=== PATIENT | male | born 1945 | race Caucasian/White ===

== ENCOUNTER 2025-01-20 15:30 | Inpatient (IN) ==
--- NOTE | 2025-01-20 15:50 | XRay Report ---
XR chest 1V portable CLINICAL HISTORY: Chest pain, nonspecific COMPARISON STUDY: None FINDINGS: Heart size and pulmonary vasculature are normal. There is a small area of patchy opacity at the right mid lung laterally. No other consolidation or pleural effusion. No pneumothorax. IMPRESSION: Early pneumonia on the right. Follow-up to resolution recommended to rule out underlying pulmonary nodule. ACT 112: Positive. There are findings on this exam that require communication between the performing entity and the patient following Patient Test Result Information Act ([place] Act 112) guidelines. Electronically signed by: Cedrick Vail M.D. 01/20/2025 3:49 PM
[2025-01-20 15:55] LABS: Hematocrit (blood only) 40.2 % (42.0-52.0); Hemoglobin 14.4 g/dl (14.0-18.0); Immature Granulocytes # (auto) 0.13 K/uL (0.01-0.20); Immature Granulocytes % (auto) 1.0 %; Mean Corpuscular Hemoglobin 29.9 pg (25.0-34.0); Mean Corpuscular Volume 83.4 fL (80.0-100.0); Platelet Count 361 K/uL (130-400); RDW Standard Deviation 35.8 fL (36.4-46.3); Red Blood Count 4.82 M/uL (4.70-6.10); White Blood Count 12.42 K/ul (4.8-10.8)
--- NOTE | 2025-01-20 15:55 | Electrocardiogram Report ---
Test Reason : Blood Pressure : */* mmHG Vent. Rate : 75 BPM Atrial Rate : 75 BPM P-R Int : 178 ms QRS Dur : 90 ms QT Int : 430 ms P-R-T Axes : 56 61 55 degrees QTcB Int : 480 ms Normal sinus rhythm Nonspecific ST abnormality Prolonged QT Abnormal ECG No previous ECGs available Confirmed by West Nesbitt ([id number]) on 01/20/2025 3:55:04 PM Referred By: Confirmed By: West Nesbitt
[2025-01-20 16:13] LABS: Alanine Aminotransferase 25.0 U/L (7-52); Albumin Globulin Ratio 1.1 (0.9-2); Alkaline Phosphatase 127.0 U/L (34-104); Anion Gap 13.0 (3-11); Bilirubin,Total 0.6 mg/dl (0.2-1.0); Blood Urea Nitrogen 36.0 mg/dl (6-23); Calcium 9.6 mg/dl (8.6-10.3); Carbon Dioxide 26.0 mmol/L (21-32); Chloride 100.0 mmol/L (98-107); Creatinine Clr Calc Pharmacy 41.0 ml/min; Globulin 3.6 gm/dl (2.5-4.0); Glucose 114.0 mg/dl (70-99(Fasting)); Potassium 3.4 mmol/L (3.5-5.1); Sodium 139.0 mmol/L (136-145); Total Protein 7.4 gm/dl (6.0-8.3)
[2025-01-20 16:28] LABS: INR 1.0 (0.9-1.1); Partial Thromboplastin Time 26 Seconds (21-31); Prothrombin Time 10.9 Seconds (9.0-12.0)
[2025-01-20 16:43] LABS: Influenza A virus by PCR Negative (Neg); Influenza B virus by PCR Negative (Neg); SARS CoV2 RNA(COVID-19) Ceph NEGATIVE (Negative)
[2025-01-20] MEDS: OPTIRAY 320 125ml IV ONE (16:47)
--- NOTE | 2025-01-20 18:04 | CT Scan Report ---
EXAMINATION: Chest CT with CLINICAL HISTORY: Elevated troponin, PE versus pneumonia PRIORS: None TECHNIQUE: Contiguous axial images were obtained through the chest with the use of intravenous contrast. Sagittal and coronal reformations are supplied. FINDINGS: Pulmonary arteries are well opacified. No central or peripheral pulmonary embolism is identified. In lung windows, pulmonary emphysema noted. Heterogeneous spiculated opacity present in the right upper lung, at the level of the fissure, image 64, series 3 and similar appearance in the left lung lingular segment medially and both lung bases. Small right pleural effusion is present. No pericardial effusion. Small nonpathologically enlarged mediastinal lymph nodes are noted. Trachea and mainstem bronchi are patent. Heart size within normal limits. Moderate atherosclerotic disease of the aorta noted. Limited visualization of the upper abdomen is unremarkable. In bone windows, degenerative change of the spine, allowing for protocol technique. IMPRESSION: 1. CT features favoring multifocal bilateral pneumonia. After medical treatment, follow-up chest CT is suggested in 6 to 8 weeksto ensure resolution as underlying malignancy cannot be excluded. 2. No pulmonary embolism. ACT 112: Positive. There are findings on this examination that require communication between the performing entity and the patient following Patient Test Result Information Act ([place] ACT 112) guidelines. Electronically signed by Corry Murguia 01-20-2025 6:04 PM
[2025-01-20] MEDS: cefTRIAXone SODIUM 2,000 MG/50 ML BAG IV STA (18:13)
--- NOTE | 2025-01-20 18:25 | Emergency Department Note ---
Impression & Plan Acute hypoxic respiratory failure, Community acquired pneumonia ED Provider Note NAME: BONNIE ECHEVARRIA Jr AGE: 79 SEX: M : 1945 ARRIVES VIA: Ambulance INFORMANT: Patient, ED PROVIDER(S): Nuha Taylor MD CHIEF COMPLAINT: Cough, congestion HPI: This is a 79-year-old male present for cough and congestion. Patient notes that he began feeling ill about 8 days ago. He then felt somewhat better and then got worse again. He reports shortness of breath, difficulty walking due to dyspnea. He reports cough. Reports yellow phlegm. No fevers at home. No nausea vomiting or diarrhea. No chest pain or pleurisy or leg swelling with this. No back pain. ROS: See above HPI for pertinent positives & negatives. A total of 10 systems reviewed and were otherwise negative. PAST MEDICAL HISTORY: See Below PAST SURGICAL HISTORY: See Below FAMILY HISTORY: See Below SOCIAL HISTORY: See Below HOME MEDICATIONS: See Below ALLERGIES: See Below VITALS: See Below PHYSICAL EXAMINATION: General: resting comfortably in no acute distress Head: Normocephalic and atraumatic Eyes: Normal inspection, extraocular muscles intact Ear, nose, throat: Normal external exam Neck: Normal range of motion Respiratory: lungs clear to auscultation bilaterally Cardiovascular: Regular rate/rhythm, no murmur GI: soft, nontender, no guarding or rebound Extremities: nontender, moves all extremities Neuro: The patient awake and alert, appropriately conversive, no focal deficits, symmetric faces Skin: Warm, dry, and intact MEDICAL DECISION MAKING: This is a 79-year-old male present for cough and congestion. Patient appears to have a initial upper respiratory infection, improvement in that worsening. Consider superimposed bacterial pneumonia. Will do screening blood work, chest x-ray and EKG. - Blood work reveals leukocytosis 12.42 otherwise creatinine 1.46. Surprisingly troponin is elevated at 197. - ECG independently interpreted by me with normal sinus rhythm, rate of 75, normal axis, normal ME, normal QRS, normal QTc, no ST segment elevations consistent with STEMI criteria -Chest x-ray reviewed was a focal opacity in the right lung as independent interpreted myself - Due to troponin elevation with shortness of breath and hypoxia, will progress to CTA to rule out PE/assess pneumonia further - No PE is noted. There appears to be multifocal pneumonia. - Will admit the patient at this time Differential diagnosis: Pneumonia, PE, CHF, pneumothorax Independent History obtained from: [facility] interpreted by me: ECG: See above Cardiac Monitoring: An order was placed for continuous cardiac monitoring. The monitor shows a rate of 72 with sinus rhythm. Past Med/Surg History Problem List (Updated 01/21/25 @ 00:28 by Nuha Taylor MD) Community acquired pneumonia (Acute) CKD (chronic kidney disease) Hypokalemia Dyspnea on exertion Acute hypoxic respiratory failure (Acute) Medical History (Updated 01/21/25 @ 00:28 by Nuha Taylor MD) COPD (chronic obstructive pulmonary disease) Hypertension GERD (gastroesophageal reflux disease) Surgical History Hx of wisdom tooth extraction History of trigger finger surgical repair x2 Hx of hernia repair x2 Social History Smoking Status: Never smoker Do You Dip or Chew Tobacco: No; Hx Alcohol Use: No Hx Substance Use: No Preferred Language: [place] Communication Ability: Effective Beliefs That Will Affect Care: None Current Living Situation: Spouse Other Information That Helps Us Care for You: No Feels Safe at Home: Yes Safety Concerns: Feels Safe At This Time Assistive Devices: Glasses and Hearing Aid - Bilateral Allergies Allergies Allergy/AdvReac Type Severity Reaction Status Date / Time [id number] Reductase AdvReac Severe "COULDN'T Verified 01/20/25 17:34 Inhibitor WALK" Home Meds Home Medications Medication Instructions Recorded Confirmed omeprazole 40 mg capsule,delayed 40 mg PO DAILYBB 09/24/18 01/20/25 release amlodipine 5 mg tablet 5 mg PO DAILY 01/20/25 01/20/25 ascorbic acid (vitamin C) 1,000 mg 1,000 mg PO DAILY 01/20/25 01/20/25 tablet (Vitamin C) indapamide 1.25 mg tablet 1.25 mg PO DAILY 01/20/25 01/20/25 losartan 100 mg tablet 100 mg PO DAILY 01/20/25 01/20/25 Results & Data (ED) Vital Signs Vital Signs - 24 hr 01/20/25 15:23 01/20/25 15:38 01/20/25 15:38 Temperature 36.6 C Temperature Source Oral Pulse Rate 75 Pulse Rate [Apical] Respiratory Rate 27 H Respiratory Effort / Characteristics Short of Breath Spontaneous Short of Breath Respiratory Depth Shallow Shallow Respiratory Pattern Regular Regular Blood Pressure 171/69 H Blood Pressure [Right Arm] Blood Pressure Mean 103 Blood Pressure Mean [Right Arm] Pulse Oximetry 94 98 Oxygen Delivery Method Nasal Cannula Room Air Oxygen Flow Rate 2 2 Sepsis Recent Fever Within 48 Hours No Sepsis New/Unexplained Change in Mental Status N/A Sepsis Action Taken by Nursing No Action Required 01/20/25 15:40 01/20/25 15:40 01/20/25 15:43 Temperature Temperature Source Pulse Rate 83 Pulse Rate [Apical] Respiratory Rate Respiratory Effort / Characteristics Respiratory Depth Respiratory Pattern Blood Pressure Blood Pressure [Right Arm] Blood Pressure Mean Blood Pressure Mean [Right Arm] Pulse Oximetry 100 98 Oxygen Delivery Method Nasal Cannula Nasal Cannula Oxygen Flow Rate 2 2 Sepsis Recent Fever Within 48 Hours Sepsis New/Unexplained Change in Mental Status Sepsis Action Taken by Nursing 01/20/25 17:00 01/20/25 18:00 01/20/25 18:30 Temperature Temperature Source Pulse Rate 76 Pulse Rate [Apical] 75 Respiratory Rate 22 20 20 Respiratory Effort / Characteristics Spontaneous Non-Labored Spontaneous Respiratory Depth Shallow Normal Respiratory Pattern Regular Regular Blood Pressure 126/62 Blood Pressure [Right Arm] 152/82 H 147/62 H Blood Pressure Mean 76 Blood Pressure Mean [Right Arm] 105 90 Pulse Oximetry 95 93 92 Oxygen Delivery Method Nasal Cannula Nasal Cannula Oxygen Flow Rate 2 1 Sepsis Recent Fever Within 48 Hours Sepsis New/Unexplained Change in Mental Status Sepsis Action Taken by Nursing Laboratory Data 01/20/25 15:36 01/20/25 15:36 Lab Results 01/20/25 01/20/25 01/20/25 Range/Units 15:36 15:38 17:22 WBC 12.42 H (4.8-10.8) K/ul RBC 4.82 (4.70-6.10) M/uL Hgb 14.4 (14.0-18.0) g/dl Hct 40.2 L (42.0-52.0) % MCV 83.4 (80.0-100.0) fL MCH 29.9 (25.0-34.0) pg MCHC 35.8 (32.0-36.0) g/dL RDW Std Deviation 35.8 L (36.4-46.3) fL RDW Coeff of Tiffanie 11.9 (11.5-14.5) % Plt Count 361 (130-400) K/uL MPV 8.5 L (9.4-12.4) fL Immature Gran % (Auto) 1.0 % Neut % (Auto) 78.7 % Lymph % (Auto) 13.2 % Mcdowell % (Auto) 4.6 % Eos % (Auto) 1.9 % Baso % (Auto) 0.6 % Neut # (Auto) 9.78 H (1.40-6.50) K/uL Lymph # (Auto) 1.64 (1.20-3.40) K/uL Mcdowell # (Auto) 0.57 (0.11-0.59) K/uL Eos # (Auto) 0.23 (0.00-0.50) K/uL Baso # (Auto) 0.07 (0.00-0.20) K/uL Immature Gran # (Auto) 0.13 (0.01-0.20) K/uL PT 10.9 (9.0-12.0) Seconds INR 1.0 (0.9-1.1) APTT 26 (21-31) Seconds PTT Ratio 1.0 Sodium 139 (136-145) mmol/L Potassium 3.4 L (3.5-5.1) mmol/L Chloride 100 (98-107) mmol/L Carbon Dioxide 26 (21-32) mmol/L Anion Gap 13 H (3-11) BUN 36 H (6-23) mg/dl Creatinine 1.46 H (0.6-1.4) mg/dl Est Cr Clr Drug Dosing 41.0 ml/min eGFR 49.22 BUN/Creatinine Ratio 24.7 H (10-20) Glucose 114 H (70-99(Fasting)) mg/dl Calcium 9.6 (8.6-10.3) mg/dl Total Bilirubin 0.6 (0.2-1.0) mg/dl AST 27 (13-39) U/L ALT 25 (7-52) U/L Alkaline Phosphatase 127 H (34-104) U/L Troponin I High Sens 197.0 H* 160.2 H* (0-20) pg/ml Total Protein 7.4 (6.0-8.3) gm/dl Albumin 3.8 (3.4-5.0) gm/dl Globulin 3.6 (2.5-4.0) gm/dl Albumin/Globulin Ratio 1.1 (0.9-2) Procalcitonin 0.12 (0-0.5) ng/ml SARS-CoV-2 (PCR) NEGATIVE (Negative) Influenza Type A (PCR) Negative (Neg) Influenza Type B (PCR) Negative (Neg) RSV (RT-PCR) Negative (Neg) Administered Medications Doxycycline Hyclate (Doxycycline Hyclate 100 Mg Cap) 100 mg PO BID FREDDIE Stop: 01/25/25 20:59 Last Admin: 01/20/25 20:40 Dose: 100 mg Documented By: SARA Guaifenesin (Guaifenesin 600 Mg Tabcr) 600 mg PO Q12 FREDDIE Stop: 02/19/25 20:59 Last Admin: 01/20/25 20:40 Dose: 600 mg Documented By: SARA Discontinued Medications Ceftriaxone Sodium (Rocephin) 2,000 mg in 50 mls @ 100 mls/hr IV NOW STA Stop: 01/20/25 18:35 Last Infusion: 01/20/25 18:43 Dose: Infused Documented By: Admin: 01/20/25 18:13 Dose: 100 mls/hr Documented By: AWILDA Azithromycin (Zithromax) 500 mg in 255 mls @ 127.5 mls/hr IV NOW ONE Stop: 01/20/25 20:05 Last Infusion: 01/20/25 21:19 Dose: Infused Documented By: Admin: 01/20/25 19:14 Dose: 127.5 mls/hr Documented By: RUSS Sodium Chloride (Nss) 500 mls @ 999 mls/hr IV .Q31M ONE Stop: 01/20/25 19:13 Last Infusion: 01/20/25 20:54 Dose: Infused Documented By: Admin: 01/20/25 19:14 Dose: 999 mls/hr Documented By: RUSS Ioversol (Optiray 320 125ml) 115 ml IV ONCE ONE Stop: 01/20/25 16:48 Last Admin: 01/20/25 16:47 Dose: 115 ml Documented By: LUIS Potassium Chloride (Potassium Chloride Crtab 20 Meq Tabcr) 40 meq PO NOW ONE Stop: 01/20/25 18:29 Last Admin: 01/20/25 19:13 Dose: 40 meq Documented By: RUSS Imaging Data Radiologist's Impression: Chest X-Ray 01/20/25 15:40 XR chest 1V portable CLINICAL HISTORY: Chest pain, nonspecific COMPARISON STUDY: None FINDINGS: Heart size and pulmonary vasculature are normal. There is a small area of patchy opacity at the right mid lung laterally. No other consolidation or pleural effusion. No pneumothorax. IMPRESSION: Early pneumonia on the right. Follow-up to resolution recommended to rule out underlying pulmonary nodule. ACT 112: Positive. There are findings on this exam that require communication between the performing entity and the patient following Patient Test Result Information Act ([place] Act 112) guidelines. Electronically signed by: Cedrick Vail M.D. 01/20/2025 3:49 PM Chest CTA 01/20/25 16:31 EXAMINATION: Chest CT with CLINICAL HISTORY: Elevated troponin, PE versus pneumonia PRIORS: None TECHNIQUE: Contiguous axial images were obtained through the chest with the use of intravenous contrast. Sagittal and coronal reformations are supplied. FINDINGS: Pulmonary arteries are well opacified. No central or peripheral pulmonary embolism is identified. In lung windows, pulmonary emphysema noted. Heterogeneous spiculated opacity present in the right upper lung, at the level of the fissure, image 64, series 3 and similar appearance in the left lung lingular segment medially and both lung bases. Small right pleural effusion is present. No pericardial effusion. Small nonpathologically enlarged mediastinal lymph nodes are noted. Trachea and mainstem bronchi are patent. Heart size within normal limits. Moderate atherosclerotic disease of the aorta noted. Limited visualization of the upper abdomen is unremarkable. In bone windows, degenerative change of the spine, allowing for protocol technique. IMPRESSION: 1. CT features favoring multifocal bilateral pneumonia. After medical treatment, follow-up chest CT is suggested in 6 to 8 weeksto ensure resolution as underlying malignancy cannot be excluded. 2. No pulmonary embolism. ACT 112: Positive. There are findings on this examination that require communication between the performing entity and the patient following Patient Test Result Information Act ([place] ACT 112) guidelines. Electronically signed by Corry Murguia 01-20-2025 6:04 PM Discharge Plan Visit Data Chief Complaint: Shortness of Breath/Dyspnea Stated Complaint: SOB ED Provider: Nuha Taylor Discharge Problem: Acute hypoxic respiratory failure, Community acquired pneumonia Patient Disposition: Admitted As Inpatient Condition: Fair Discharge Instructions Interventions: ED Discharge Assessment Last Done: 01/20/25 19:49
--- NOTE | 2025-01-20 18:36 | History & Physical Report ---
Date of Service January 20, 2025 Assessment & Plan (1) Acute hypoxic respiratory failure: Plan: Patient is a 79 year old M with a past medical history of hypertension, atherosclerosis, hypercholesteremia, Prediabetes, CKD Stage III, BPH, PMR, OA, hearing loss presenting with hypoxia. Symptoms began 8 days ago with shortness of breath that progressively worsened. Chills at home without measurable fever. Shortness of breath with minimal exertion at home. + productive cough with discolored sputum. Acute hypoxic resp failure in the setting of pneumonia * Admit to Med Surg Tele for further management CAP * Azitho and Ceftriax given in ED--> continue Ceftriax daily, Stop Azithro with elev QTc, Start Doxy BID dosing * Supplemental O2 as needed to maintain sats above 92% * Duonebs as needed * IS Q1-4H while awake * Flutter valve * Mucinex scheduled Q12 H- adjust as needed * Obtain sputum culture-ordered * PT/OT when appropriate #Dyspnea on exertion with elev Trop * Echo to investigate possible cardiac etiology with elevated troponin, although trending down * Noted on CTA chest that following medial treatment of current illness, follow-up chest CT is suggested in 6 to 8 weeks to ensure resolution as underlying malignancy cannot be exclude #Hypokalemia * K+ 3.4 in ED and given 40 meq KCL tab * Trend with Am labs #CKD Stage III * Cr 1.46 slightly increased from baseline 1.3; * Clinically dry- elev BUN/Creat ratio- 500 ml NSS given in ED * Trend labs #Hypertension * Cont home regimen and trend DVT Ppx: SCDs Code status: Full PCP: Dr. Siegel Dispo: Admit to Med Surg Tele for further management Patient seen in collaboration with Dr. Raymundo_. Please see addendum.I spent a total of 70 minutes coordinating, documenting and providing care for this patient excluding time spent in the performance of separately billed services or time spent by another provider/QHP. (2) Dyspnea on exertion: (3) Hypokalemia: (4) CKD (chronic kidney disease): (5) Hypertension: History of Present Illness Primary Care Provider: Jacob Siegel DO Patient is a 79 year old M with a past medical history of hypertension, atherosclerosis, hypercholesteremia, Prediabetes, CKD Stage III, BPH, PMR, OA, hearing loss presenting with hypoxia. Symptoms began 8 days ago with shortness of breath that progressively worsened. Chills at home without measurable fever. Shortness of breath with minimal exertion at home. + productive cough with discolored sputum. Denies weight loss, weakness, headache, cognitive changes, vision/hearing grover es, chest pain, swelling, urinary concerns, N/V/D, joint swelling/pain, ambulation difficulty, skin rashes, lesions, bleeding, bruising. In the emergency department, patient was mostly hemodynamically stable with elev WBC 12.42, hypoxia, tachypnea. Lactate and Procal normal. Azithro and Ceftriaxone for CAP treament. 500 ml NSS bolus given. Trop initially 197, trended down to 160 most likely a demand issue in the setting of pneumonia. Covid/Flu/RSV negative K+ 3.4 and replaced with KCL tab 40 meq Creat at baseline 1.3-1.6 EKG: NSR with vent rate 75 bpm, QTc 480 Chest Xray showed heart size and pulmonary vasculature are normal; small area of patchy opacity at the right mid lung laterally; no other consolidation or pleural effusion. No pneumothorax. CTA chest showed multifocal bilateral pneumonia. Also noted after medical treatment, follow-up chest CT is suggested in 6 to 8 weeksto ensure resolution as underlying malignancy cannot be excluded; No pulmonary embolism. History obtained primarily from the patient and via hospitalization record. The patient's family was at the bedside and assisted with history of current illnes s. Allergies Allergy/AdvReac Type Severity Reaction Status Date / Time [id number] Reductase AdvReac Severe "COULDN'T Verified 01/20/25 17:34 Inhibitor WALK" Home Medications Medication Instructions Recorded Confirmed Type omeprazole 40 mg capsule,delayed 40 mg PO DAILYBB 09/24/18 01/20/25 History release amlodipine 5 mg tablet 5 mg PO DAILY 01/20/25 01/20/25 History ascorbic acid (vitamin C) 1,000 mg 1,000 mg PO DAILY 01/20/25 01/20/25 History tablet (Vitamin C) indapamide 1.25 mg tablet 1.25 mg PO DAILY 01/20/25 01/20/25 History losartan 100 mg tablet 100 mg PO DAILY 01/20/25 01/20/25 History Past Med/Surg History Problem List (Updated 01/20/25 @ 21:51 by AMIRA Callaway) CKD (chronic kidney disease) Hypokalemia Dyspnea on exertion Acute hypoxic respiratory failure Medical History (Updated 01/20/25 @ 21:51 by AMIRA Callaway) COPD (chronic obstructive pulmonary disease) Hypertension GERD (gastroesophageal reflux disease) Surgical History Hx of wisdom tooth extraction History of trigger finger surgical repair x2 Hx of hernia repair x2 Social History Smoking Status: Never smoker Do You Dip or Chew Tobacco: No; Hx Alcohol Use: No Hx Substance Use: No Preferred Language: Nicaraguan Communication Ability: Effective Beliefs That Will Affect Care: None Current Living Situation: Spouse Feels Safe at Home: Yes Assistive Devices: Glasses, Hearing Aid - Left and Hearing Aid - Right Review of Systems Review of Systems: All systems reviewed & are unremarkable except as noted in HPI & below Physical Exam Physical Exam: VITALS: Reviewed. WEIGHT/BMI reviewed. GEN: Healthy appearing, well-developed, NAD. PSYCH: Good Judgment. AOx3. Normal memory, mood, and affect. HEENT -Head: NC/AT; -Eyes: PERRL, EOMI. No discharge or redn ess; -Ears: External ears are normal. Normal TMs. -Nose: Normal nares. -Mouth and throat: MMM. Normal gums, muc dexter, palate,. Good dentition. NECK: Supple, with no masses. CV: RRR, no m/r/g. LUNGS: Diminished, coarse, supplemental O2 ABD: Soft, NT/ND, NBS, no masses or organomegaly. : N/A SKIN: Warm, well perfused. No skin rashes or abnormal lesions. MSK: No deformities, Normal gait. EXT: No clubbing, cyanosis, or edema. NEURO: Normal muscle strength and tone. No focal deficits. Results & Data Results & Data Vital Signs (Past 12 Hours) Vital Signs Temp Pulse Pulse Resp BP BP Pulse Ox 01/20/25 18:00 75 20 147/62 H 93 01/20/25 17:00 22 152/82 H 95 01/20/25 15:43 83 01/20/25 15:40 98 01/20/25 15:40 100 01/20/25 15:38 98 01/20/25 15:23 36.6 C 75 27 H 171/69 H 94 O2 Del Method O2 Flow Rate 07/01/25 18:00 Nasal Cannula 1 01/20/25 17:00 Nasal Cannula 2 01/20/25 15:43 01/20/25 15:40 Nasal Cannula 2 01/20/25 15:40 Nasal Cannula 2 01/20/25 15:38 Room Air 2 01/20/25 15:23 Nasal Cannula 2 Laboratory Results Short CBC 01/20/25 Range/Units 15:36 WBC 12.42 H (4.8-10.8) K/ul Hgb 14.4 (14.0-18.0) g/dl Hct 40.2 L (42.0-52.0) % Plt Count 361 (130-400) K/uL BMP 01/20/25 15:36 Sodium 139 Potassium 3.4 L Chloride 100 Carbon Dioxide 26 BUN 36 H Creatinine 1.46 H Glucose 114 H Calcium 9.6 Liver Function 01/20/25 Range/Units 15:36 Total Bilirubin 0.6 (0.2-1.0) mg/dl AST 27 (13-39) U/L ALT 25 (7-52) U/L Alkaline Phosphatase 127 H (34-104) U/L Albumin 3.8 (3.4-5.0) gm/dl Diagnostic Findings Chest X-Ray 01/20/25 15:40 XR chest 1V portable CLINICAL HISTORY: Chest pain, nonspecific COMPARISON STUDY: None FINDINGS: Heart size and pulmonary vasculature are normal. There is a small area of patchy opacity at the right mid lung laterally. No other consolidation or pleural effusion. No pneumothorax. IMPRESSION: Early pneumonia on the right. Follow-up to resolution recommended to rule out underlying pulmonary nodule. ACT 112: Positive. There are findings on this exam that require communication between the performing entity and the patient following Patient Test Result Information Act ([place] Act 112) guidelines. Electronically signed by: Cedrick Vail M.D. 01/20/2025 3:49 PM Chest CTA 01/20/25 16:31 EXAMINATION: Chest CT with CLINICAL HISTORY: Elevated troponin, PE versus pneumonia PRIORS: None TECHNIQUE: Contiguous axial images were obtained through the chest with the use of intravenous contrast. Sagittal and coronal reformations are supplied. FINDINGS: Pulmonary arteries are well opacified. No central or peripheral pulmonary embolism is identified. In lung windows, pulmonary emphysema noted. Heterogeneous spiculated opacity present in the right upper lung, at the level of the fissure, image 64, series 3 and similar appearance in the left lung lingular segment medially and both lung bases. Small right pleural effusion is present. No pericardial effusion. Small nonpathologically enlarged mediastinal lymph nodes are noted. Trachea and mainstem bronchi are patent. Heart size within normal limits. Moderate atherosclerotic disease of the aorta noted. Limited visualization of the upper abdomen is unremarkable. In bone windows, degenerative change of the spine, allowing for protocol technique. IMPRESSION: 1. CT features favoring multifocal bilateral pneumonia. After medical treatment, follow-up chest CT is suggested in 6 to 8 weeksto ensure resolution as underlying malignancy cannot be excluded. 2. No pulmonary embolism. ACT 112: Positive. There are findings on this examination that require communication between the performing entity and the patient following Patient Test Result Information Act ([place] ACT 112) guidelines. Electronically signed by Corry Murguia 01-20-2025 6:04 PM Supervising Physician Co-Signing Physician Notes I have seen and discussed the case with the collaborating advanced practitioner. I agree with the above H&P. I have reviewed and confirmed the patients medical history, the findings on physical examination, and the patients diagnosis and treatment plan with Jermaine COLLIER and agree with the information documented. Reports worsening cough, sob and chills since Sunday. endorses some subjective fevers. Endorses months of ACEVEDO, seemingly worsening; improves with rest, no chest pain/anginal symptoms, nor palpitations cough with some sputum production. no resp hx, no tobacco use, no sick contacts GENERAL APPEARANCE: AxOx4, generally well-appearing m, no acute distress. HEENT: NC, AT. MMM. EOMI, clear conjunctiva, oropharynx clear. NECK: Supple without lymphadenopathy. No stiffness or restricted ROM. HEART: Normal rate and regular rhythm, normal S1/S1, no m/r/g LUNGS: CTAB, moving air well. no wheezing, few rhonchi no distress ABDOMEN: Soft, nontender, nondistended with good bowel sounds heard. BACK: No CVAT, no obvious deformity. EXTREMITIES: Without cyanosis, clubbing or edema. NEUROLOGICAL: Grossly nonfocal. Alert and oriented, moving all 4 extremities. CN not formally tested but appear grossly intact Skin: Warm and dry without any rash. : Mr. Huertas is a 79 yo gentleman w/ CKD, HTN, prediabetes admitted for multifocal pneumonia. #acute hypoxic resp failure #Multifocal pneumonia continue CTX and azithromycin sputum culture as able flutter valve, Mucinex, albuterol prn #ACEVEDO #Elevated troponin downtrending, likely demand iso hypoxia and acute illness monitor on tele, trop peaked Plan for ECHO as the trop elevation is still suspicious for likely underlying disease though low suspicion for active ACS, would be prudent to get patient established with cards IP v OP #HLD statin intolerant #Essential hypertension with goal blood pressure less than 140/90 continue home regimen #Prediabetes a1c 5.7 2023 encourage lifestyle changes #Chronic kidney disease, stage 3a (HCC) baseline roughly 1.3 #Chronic back pain continue tizanidine I spent a total of 20 minutes coordinating, documenting, and providing care for this patient excluding time spent in the performance of separately billed services. All of the aforementioned completed outside of collaborating with the assigned advanced practitioner for a full treatment plan. I have reviewed the advanced practitioner's documentation, and I agree with, and take responsibility for the plan of care
[2025-01-20] MEDS: POTASSIUM CHLORIDE CRTAB 20 MEQ TABCR PO ONE (19:13)
[2025-01-20] MEDS: SODIUM CHLORIDE 0.9% 500 ML IV ONE (19:14)
[2025-01-20] MEDS: AZITHROMYCIN 500 MG/255 ML BAG IV ONE (19:14)
[2025-01-20] MEDS ORDERED: ACETAMINOPHEN 325 MG TAB PO PRN (20:18)
[2025-01-20] MEDS ORDERED: POLYETHYLENE (MIRALAX) 17 GM PACK PO PRN (20:18)
[2025-01-20] MEDS ORDERED: ALBUT/IPRATROP 3MG/0.5MG NEB 3 ML VIAL NEB PRN (20:18)
[2025-01-20] MEDS ORDERED: MAGNESIUM HYDROXIDE SUSP 30 ML UDC PO PRN (20:18)
[2025-01-20] MEDS: DOXYCYCLINE HYCLATE 100 MG CAP PO SCH (20:40)
[2025-01-20] MEDS: guaiFENesin 600 MG TABCR PO SCH (20:40)
[2025-01-21] MEDS: INDAPAMIDE 1.25 MG TAB PO SCH (08:00)
[2025-01-21] MEDS: LOSARTAN POTASSIUM 50 MG TAB PO SCH (08:01)
[2025-01-21 08:42] LABS: Anion Gap 8.0 (3-11); Blood Urea Nitrogen 38.0 mg/dl (6-23); Calcium 9.3 mg/dl (8.6-10.3); Carbon Dioxide 28.0 mmol/L (21-32); Chloride 102.0 mmol/L (98-107); Creatinine Clr Calc Pharmacy 46.0 ml/min; Glucose 142.0 mg/dl (70-99(Fasting)); Potassium 4.3 mmol/L (3.5-5.1); Sodium 138.0 mmol/L (136-145)
[2025-01-21 09:16] LABS: Hematocrit (blood only) 40.4 % (42.0-52.0); Hemoglobin 13.9 g/dl (14.0-18.0); Mean Corpuscular Hemoglobin 29.1 pg (25.0-34.0); Mean Corpuscular Volume 84.7 fL (80.0-100.0); Platelet Count 343 K/uL (130-400); RDW Standard Deviation 36.3 fL (36.4-46.3); Red Blood Count 4.77 M/uL (4.70-6.10); White Blood Count 20.40 K/ul (4.8-10.8)
--- NOTE | 2025-01-21 10:42 | Hospitalist Progress Note ---
Date of Service January 21, 2025 Assessment & Plan (1) Acute hypoxic respiratory failure: (2) Dyspnea on exertion: (3) Hypokalemia: (4) CKD (chronic kidney disease): (5) Hypertension: (6) Community acquired pneumonia: Plan 79 year old M with a past medical history of hypertension, atherosclerosis, hypercholesteremia, Prediabetes, CKD Stage III, BPH, PMR, OA, hearing loss presented with cough and shortness of breath that started 8 days prior Acute hypoxic resp failure Pneumonia On admission, Labs notable for leukocytosis 12.4, K 3.4, Cr 1.46, Trop 197->160, Chest CTA noted bilateral multifocal pneumonia. No PE Increased leukocytosis to 20K today Continue ceftriaxone and doxycycline Incentive spirometry Wean oxygen as tolerated Elevated troponin likely Demand Ischemia EKG reviewed. No ST changes TTE noted mild conc LVH, EF 55-60%, Grade I DD, mild AV sclerosis without significant stenosis, focal thickening of noncoronary cusp, mild MR Hypokalemia on admission was repleted and resolved. Monitor CKD Stage III On admission Cr 1.46 slightly increased from baseline 1.3; Cr is 1.3 today Hypertension Cont home regimen and trend DVT Ppx: SCDs Code status: Full I spent a total of 50 minutes coordinating, documenting and providing care for this patient excluding time spent in performance of separately billed services Admission and Anticipated Discharge Date Admission Date: January 20, 2025 Subjective Patient seen and examined and daughter at bedside Reports cough and SOB that had been worsening necessitating presentation to ER Reports feeling a bit better today Denied chest pain, nausea, vomiting, abd pain, diarrhea, congestion, rhinorrhea, sore throat Review of Systems Review of Systems: All systems reviewed & are unremarkable except as noted in Subjective Physical Exam Constitutional: + well hydrated; no acute distress Eyes: PERRL, conjunctivae normal, anicteric sclerae ENMT: external ear and nose normal, oropharynx normal Respiratory: normal respiratory effort; no respiratory distress On nasal cannula, Diminished breath sounds Cardiovascular: Rate/Rhythm: regular rate and regular rhythm Gastrointestinal (Abdomen): normal bowel sounds, soft, nontender, no hepatosplenomegaly Musculoskeletal: No pedal edema Neurologic: PERRL, EOMI, accommodation nl, no face palsy, no dysarthria Psychiatric: A+Ox3, euthymic affect Results & Data Results & Data Vital Signs (Past 12 Hours) Vital Signs Temp Pulse Pulse Resp BP Pulse Ox O2 Del Method 01/21/25 08:55 70 01/21/25 07:54 Nasal Cannula 01/21/25 07:21 36.4 C L 87 18 148/77 H 94 Nasal Cannula 01/21/25 03:46 36.4 C L 72 20 132/77 95 Nasal Cannula O2 Flow Rate 01/21/25 08:55 01/21/25 07:54 2 01/21/25 07:21 2 01/21/25 03:46 2 Laboratory Results Abnormal lab results 01/20/25 01/20/25 01/21/25 Range/Units 15:36 17:22 08:10 WBC 12.42 H 20.40 H D (4.8-10.8) K/ul Hgb 13.9 L (14.0-18.0) g/dl Hct 40.2 L 40.4 L (42.0-52.0) % RDW Std Deviation 35.8 L 36.3 L (36.4-46.3) fL MPV 8.5 L 8.5 L (9.4-12.4) fL Neut # (Auto) 9.78 H (1.40-6.50) K/uL Potassium 3.4 L (3.5-5.1) mmol/L Anion Gap 13 H (3-11) BUN 36 H 38 H (6-23) mg/dl Creatinine 1.46 H (0.6-1.4) mg/dl BUN/Creatinine Ratio 24.7 H 29.2 H (10-20) Glucose 114 H 142 H (70-99(Fasting)) mg/dl Alkaline Phosphatase 127 H (34-104) U/L Troponin I High Sens 197.0 H* 160.2 H* (0-20) pg/ml
[2025-01-21] MEDS: cefTRIAXone SODIUM 2,000 MG/50 ML BAG IV SCH (18:09)
[2025-01-22 06:25] LABS: Hematocrit (blood only) 38.4 % (42.0-52.0); Hemoglobin 13.0 g/dl (14.0-18.0); Mean Corpuscular Hemoglobin 29.1 pg (25.0-34.0); Mean Corpuscular Volume 86.1 fL (80.0-100.0); Platelet Count 339 K/uL (130-400); RDW Standard Deviation 37.3 fL (36.4-46.3); Red Blood Count 4.46 M/uL (4.70-6.10); White Blood Count 16.28 K/ul (4.8-10.8)
[2025-01-22 06:45] LABS: Anion Gap 6.0 (3-11); Blood Urea Nitrogen 39.0 mg/dl (6-23); Calcium 9.2 mg/dl (8.6-10.3); Carbon Dioxide 30.0 mmol/L (21-32); Chloride 104.0 mmol/L (98-107); Creatinine Clr Calc Pharmacy 46.0 ml/min; Glucose 96.0 mg/dl (70-99(Fasting)); Potassium 4.4 mmol/L (3.5-5.1); Sodium 140.0 mmol/L (136-145)
--- NOTE | 2025-01-22 10:54 | Hospitalist Progress Note ---
Date of Service January 22, 2025 Assessment & Plan (1) Acute hypoxic respiratory failure: (2) Dyspnea on exertion: (3) Hypokalemia: (4) CKD (chronic kidney disease): (5) Hypertension: (6) Community acquired pneumonia: Plan 79 year old M with a past medical history of hypertension, atherosclerosis, hypercholesteremia, Prediabetes, CKD Stage III, BPH, PMR, OA, hearing loss presented with cough and shortness of breath that started 8 days prior Acute hypoxic resp failure Pneumonia On admission, Labs notable for leukocytosis 12.4, K 3.4, Cr 1.46, Trop 197->160, Chest CTA noted bilateral multifocal pneumonia. No PE Leukocytosis improved from 20k yesterday to 16K today Continue ceftriaxone and doxycycline Encourage increased activity Off oxygen for now. Will monitor Elevated troponin likely Demand Ischemia EKG reviewed. No ST changes TTE noted mild conc LVH, EF 55-60%, Grade I DD, mild AV sclerosis without significant stenosis, focal thickening of noncoronary cusp, mild MR Hypokalemia on admission was repleted and resolved. Monitor CKD Stage III On admission Cr 1.46 slightly increased from baseline 1.3; Cr is 1.3 today Hypertension Cont home regimen and trend DVT Ppx: SCDs Code status: Full Updated daughter at bedside I spent a total of 50 minutes coordinating, documenting and providing care for this patient excluding time spent in performance of separately billed services Admission and Anticipated Discharge Date Admission Date: January 20, 2025 Subjective Patient seen and examined Reports cough States Shortness of breath mostly resolved Denied any other complaints Off oxygen Physical Exam Constitutional: + well hydrated; no acute distress Eyes: PERRL, conjunctivae normal, anicteric sclerae ENMT: external ear and nose normal, oropharynx normal Respiratory: normal respiratory effort; no respiratory distress +crackles Cardiovascular: Rate/Rhythm: regular rate and regular rhythm Gastrointestinal (Abdomen): normal bowel sounds, soft, nontender, no hepatosplenomegaly Neurologic: PERRL, EOMI, accommodation nl, no face palsy, no dysarthria Psychiatric: A+Ox3, euthymic affect Results & Data Results & Data Vital Signs (Past 12 Hours) Vital Signs Temp Pulse Pulse Resp BP Pulse Ox O2 Del Method 01/22/25 07:55 36.5 C 75 18 157/75 H 96 Room Air 07/03/25 07:28 61 01/22/25 03:49 36.6 C 70 18 134/76 96 Room Air 01/22/25 00:03 36.6 C 69 18 151/79 H 93 Room Air Laboratory Results Abnormal lab results 01/22/25 Range/Units 05:28 WBC 16.28 H (4.8-10.8) K/ul RBC 4.46 L (4.70-6.10) M/uL Hgb 13.0 L (14.0-18.0) g/dl Hct 38.4 L (42.0-52.0) % MPV 8.8 L (9.4-12.4) fL BUN 39 H (6-23) mg/dl BUN/Creatinine Ratio 30.0 H (10-20)
[2025-01-23 02:58] VITALS: O2SAT 95
[2025-01-23 06:31] LABS: Hematocrit (blood only) 40.3 % (42.0-52.0); Hemoglobin 13.8 g/dl (14.0-18.0); Mean Corpuscular Hemoglobin 29.1 pg (25.0-34.0); Mean Corpuscular Volume 85.0 fL (80.0-100.0); Platelet Count 366 K/uL (130-400); RDW Standard Deviation 36.3 fL (36.4-46.3); Red Blood Count 4.74 M/uL (4.70-6.10); White Blood Count 10.75 K/ul (4.8-10.8)
[2025-01-23 07:06] LABS: Anion Gap 6.0 (3-11); Blood Urea Nitrogen 38.0 mg/dl (6-23); Calcium 9.4 mg/dl (8.6-10.3); Carbon Dioxide 30.0 mmol/L (21-32); Chloride 102.0 mmol/L (98-107); Creatinine Clr Calc Pharmacy 41.3 ml/min; Glucose 88.0 mg/dl (70-99(Fasting)); Potassium 4.9 mmol/L (3.5-5.1); Sodium 138.0 mmol/L (136-145)
[2025-01-23 08:28] VITALS: BP 149/74; PULSE 73; RESP 18; TEMP 98.2
--- NOTE | 2025-01-23 08:47 | Discharge Summary ---
Date of Service January 23, 2025 Admission HPI Per Admitting Provider Patient is a 79 year old M with a past medical history of hypertension, atherosclerosis, hypercholesteremia, Prediabetes, CKD Stage III, BPH, PMR, OA, hearing loss presenting with hypoxia. Symptoms began 8 days ago with shortness of breath that progressively worsened. Chills at home without measurable fever. Shortness of breath with minimal exertion at home. + productive cough with discolored sputum. Denies weight loss, weakness, headache, cognitive changes, vision/hearing changes, chest pain, swelling, urinary concerns, N/V/D, joint swelling/pain, ambulation difficulty, skin rashes, lesions, bleeding, bruising. In the emergency department, patient was mostly hemodynamically stable with elev WBC 12.42, hypoxia, tachypnea. Lactate and Procal normal. Azithro and Ceftriaxone for CAP treament. 500 ml NSS bolus given. Trop initially 197, trended down to 160 most likely a demand issue in the setting of pneumonia. Covid/Flu/RSV negative K+ 3.4 and replaced with KCL tab 40 meq Creat at baseline 1.3-1.6 EKG: NSR with vent rate 75 bpm, QTc 480 Chest Xray showed heart size and pulmonary vasculature are normal; small area of patchy opacity at the right mid lung laterally; no other consolidation or pleu ral effusion. No pneumothorax. CTA chest showed multifocal bilateral pneumonia. Also noted after medical treatment, follow-up chest CT is suggested in 6 to 8 weeksto ensure resolution a s underlying malignancy cannot be excluded; No pulmonary embolism. History obtained primarily from the patient and via hospitalization record. The patient's family was at the bedside and assisted with history of current illness. Admission Exam Per Admitting Provider GEN: Healthy appearing, well-developed, NAD. PSYCH: Good Judgment. AOx3. Normal memory, mood, and affect. HEENT -Head: NC/AT; -Eyes: PERRL, EOMI. No discharge or redness; -Ears: External ears are normal. Normal TMs. -Nose: Normal nares. -Mouth and throat: MMM. Normal gums, mucosa, palate,. Good dentition. NECK: Supple, with no masses. CV: RRR, no m/r/g. LUNGS: Diminished, coarse, supplemental O2 ABD: Soft, NT/ND, NBS, no masses or organomegaly. : N/A SKIN: Warm, well perfused. No skin rashes or abnormal lesions. MSK: No deformities, Normal gait. EXT: No clubbing, cyanosis, or edema. NEURO: Normal muscle strength and tone. No focal deficits. Principal Diagnosis Acute respiratory failure with hypoxia Multifocal pneumonia Discharge Exam Constitutional + well hydrated; no acute distress Eyes PERRL, conjunctivae normal, anicteric sclerae ENMT external ear and nose normal, oropharynx normal Respiratory normal respiratory effort; no respiratory distress On room air, +crackles Cardiovascular Rate/Rhythm: regular rate and regular rhythm Gastrointestinal (Abdomen) normal bowel sounds, soft, nontender, no hepatosplenomegaly Neurologic PERRL, EOMI, accommodation nl, no face palsy, no dysarthria Psychiatric A+Ox3, euthymic affect Discharge Data Allergies Allergy/AdvReac Type Severity Reaction Status Date / Time [id number] Reductase AdvReac Severe "COULDN'T Verified 01/20/25 17:34 Inhibitor WALK" Consultations 01/20/25 18:22 ED Decision to Admit Stat Ordered Studies 01/20/25 16:31 CT for pulmonary embolism PE [CT angio chest PE protocol] Stat Hospital Course (1) Acute hypoxic respiratory failure: (2) Dyspnea on exertion: (3) Hypokalemia: (4) CKD (chronic kidney disease): (5) Hypertension: (6) Community acquired pneumonia: Plan 79 year old M with a past medical history of hypertension, atherosclerosis, hypercholesteremia, Prediabetes, CKD Stage III, BPH, PMR, OA, hearing loss presented with cough and shortness of breath that started 8 days prior Acute hypoxic resp failure Pneumonia On admission, Labs notable for leukocytosis 12.4, K 3.4, Cr 1.46, Trop 197->160, Chest CTA noted bilateral multifocal pneumonia. No PE WBC had increased to 20k but now resolved Was treated with IV ceftriaxone and doxycycline Was successfully weaned off oxygen. No need of oxygen with ambulation Discharged on cefpodoxime and doxycycline to complete treatment Elevated troponin likely Demand Ischemia EKG reviewed. No ST changes TTE noted mild conc LVH, EF 55-60%, Grade I DD, mild AV sclerosis without significant stenosis, focal thickening of noncoronary cusp, mild MR Hypokalemia on admission was repleted and resolved. CKD Stage III On admission Cr 1.46 slightly increased from baseline 1.3; Cr is 1.45 today Hypertension Cont home regimen and trend Total Time Total Time Spent Total Time Spent (In Minutes): 35 Total Time Includes: Examination of the Patient, Discharge Planning and Medication Reconciliation Discharge Plan Discharge Items Patient Disposition: Home - Self-Care Reason For Visit: PNEUMONIA Discharge Diagnosis: Acute respiratory failure with hypoxia Multifocal pneumonia Condition on Discharge: Fair Activity: Resume your previous activity Non-emergency contact: Primary Care Provider Call non-emergency contact if: you have any medication questions and your symptoms worsen Follow-up/Referrals: Jacob Siegel DO [Primary Care Provider] - 01/28/25 2:20 pm (Date & Time 01/28/2025 2:20 PM Provider: Jacob Siegel DO [facility] ) Diet: Heart Healthy Addtl Attending Provider Instructions: Mr Tabor You were hospitalized and managed for the above listed diagnoses. You are being discharged on oral antibiotics to complete treatment. Please ensure follow up with your Primary Doctor. It was a pleasure taking care of you. Pending Studies at Discharge: No Stand-Alone Forms: My [facility] Adaptive TCR, Smoking Cessation Medications and DC Order Prescriptions: New doxycycline hyclate 100 mg Capsule 100 mg PO BID 3 Days Qty: 6 0RF cefpodoxime 200 mg tablet 200 mg PO BID 3 Days Qty: 6 0RF Rx Instructions: must administer with a meal/food Continued omeprazole 40 mg Capsule,Delayed Release(Dr/Ec) 40 mg PO DAILYBB ascorbic acid (vitamin C) [Vitamin C] 1,000 mg Tablet 1,000 mg PO DAILY amlodipine 5 mg tablet 5 mg PO DAILY indapamide 1.25 mg tablet 1.25 mg PO DAILY losartan 100 mg tablet 100 mg PO DAILY Discharge Orders: Discharge Order (Routine); Ordered 01/23/25 Ordered By: Kristal Geronimo Admission Data Admit Date/Time: 01/20/25 18:43 Attending Provider: Kristal Geronimo I. Admit Provider: Almita Raymundo Primary Care Provider: Jacob Siegel Other Providers: Almita Raymundo Other Interventions: Discharge Summary Assessment (RN) Last Done: 01/23/25 09:01
== END 2025-01-23 09:20 | disposition home or self-care (01) | DRG 193 ==
LOC: ED 15:30 → 2W 18:43 → SUATTDRO 18:43 → 2W 19:49